=== PATIENT | female | born 1985 | race Hispanic/Latino ===

== ENCOUNTER 2016-03-24 17:02 | Emergency (ER) ==
[2016-03-24 17:48] VITALS: BP 118/68
[2016-03-24 18:02] LABS: URINE SOURCE CLEAN CATCH
[2016-03-24 18:16] LABS: BILIRUBIN URINE NEGATIVE (NEGATIVE); BLOOD URINE TRACE (NEGATIVE); CLARITY VERY CLOUDY (CLEAR); COLOR YELLOW; GLUCOSE URINE NEGATIVE (NEGATIVE); LEUKOCYTES URINE TRACE (NEGATIVE); NITRITE URINE NEGATIVE (NEGATIVE); PROTEIN URINE NEGATIVE (NEGATIVE); SP GRAVITY URINE 1.015; UROBILINOGEN URINE NORMAL
[2016-03-24 18:22] LABS: URINE CULTURE PL NEEDED? YES; URINE EPITHELIAL CELLS <10 /HPF (<10); URINE RBC <10 /HPF (<10); URINE WBC <10 /HPF (<10)
[2016-03-24] MEDS ORDERED: SORBITOL PO ONE (20:32)
--- NOTE | 2016-03-24 20:35 | PROVIDER DOCUMENTATION ---
HPI-Abdominal Pain/GI Problem - General Chief Complaint: Abdominal Pain Stated Complaint: 11 WKS PREG/ABD PAIN Time Seen by Provider: 03/24/16 19:45 Source: patient Allergies/Adverse Reactions: Patient Allergies Allergy/AdvReac Type Severity Reaction Status Date / Time No Known Allergies Allergy Verified 10/03/13 20:54 - History of Present Illness-ABD Nature of Presenting Problems: Pt is 30 F presents to the ED with stomach pain and vomiting that began last night. Pt states she is but denies bleeding. Abdominal Pain Onset Location: reports: generalized abdomen Pain Radiation: reports: no radiation Quality of Pain: reports: burning Severity in ED: reports: mild, moderate Onset/Duration: reports: last night Timing: reports: still present, improving Activities at Onset: reports: none Modifying Factors: improves with: nothing Associated Symptoms: reports: nausea, vomiting Review of Systems - Adult - REVIEW OF SYSTEMS - ADULT Constitutional: denies: chills, fever Eyes: reports: no symptoms reported Ears, Nose, Mouth & Throat: reports: no symptoms reported Cardiovascular: reports: no symptoms reported Respiratory: reports: no symptoms reported Gastrointestinal: reports: abdominal pain, nausea, vomiting. denies: constipation, diarrhea Genitourinary: denies: dysuria, discharge, frequency, flank pain, incontinence, urinary retention Musculoskeletal: reports: no symptoms reported Integumentary: reports: no symptoms reported Neurological: reports: no symptoms reported Psychiatric: reports: no symptoms reported Endocrine: reports: no symptoms reported Hematologic/Lymphatic: reports: no symptoms reported Allergic/Immunologic: reports: no symptoms reported All Other Systems: Reviewed and Negative Past History - Adult - PAST MEDICAL HISTORY-ADULT Review of Records: reports: Old Records Reviewed, Nursing Assessment Review, Medications Reviewed Physical Exam-General - PHYSICAL EXAM-ADULT Initial Vital Signs Reviewed: Yes - CONSTITUTIONAL General Appearance: appears well, alert, no apparent distress - EYES Eyes: PERRL/EOMI, pink conjunctivae - HEAD, EARS, NOSE, MOUTH & THROAT HENMT: moist mucous membranes, normal ENT inspection, TMs normal, pharynx normal - NECK Neck: non-tender, full range of motion, supple - RESPIRATORY Respiratory: lungs clear, normal breath sounds, no pleuratic chest pain, no respiratory distress, no accessory muscle use - CARDIOVASCULAR Cardiovascular: normal peripheral pulses, regular rate, rhythm - GASTROINTESTINAL (ABDOMEN) Abdominal Exam: normal bowel sounds, non tender, soft - MUSCULOSKELETAL Back Exam: normal inspection, no CVA tenderness, no vertebral tenderness Extremity: normal range of motion, non-tender, normal gait, normal inspection - SKIN Integumentary: normal color, normal turgor, warm/dry - NEUROLOGIC Neurologic: grossly normal, no motor/sensory deficits - PSYCHIATRIC Psych/Mental Status: normal mood/affect, normal thought content, normal thought process, oriented x 3 Progress - PLAN OF CARE/RESULTS Progress/Plan/Lab Results: Orders Category Date Time Status US OBS COMPLETE < 14 WKS [US] Stat Exams 03/24/16 19:31 Taken QUANT TEST Stat Lab 03/24/16 19:39 Completed RHOGAM WORKUP [BBK] Stat Lab 03/24/16 19:39 Completed UCG [ TEST-URINE] [PREG] Stat Lab 03/24/16 17:[address] W/POSS RFLX CULT [URINALYSIS] Stat Lab 03/24/16 17:53 Completed URINE CULTURE [RM] Routine Lab 03/24/16 18:22 Ordered Sorbitol Med 03/24/16 20:32 Discontinued 15 ml PO NOW ONE Vital Signs Temp Pulse Resp BP 03/24/16 17:40 97.7 F 86 18 118/68 No Known Allergies Allergy (Verified 10/03/13 20:54) Laboratory 03/24/16 03/24/16 03/24/16 19:39 19:39 17:53 Ser , Semi-Qnt 02232.0 Urine Source Urine Color Urine Clarity Urine pH Ur Specific [place] Urine Protein Urine Ketones Urine Blood Urine Nitrite Urine Bilirubin Urine Urobilinogen Urine Microscopic RBC Urine WBC Urine Microscopic WBC Ur Epithelial Cells Urine Bacteria Urine Glucose Urine Test NEGATIVE ABO/Rh O POSITIVE RhIG Candidate? NO 03/24/16 17:53 Ser , Semi-Qnt Urine Source CLEAN CATCH Urine Color YELLOW Urine Clarity VERY CLOUDY A Urine pH 9.0 Ur Specific [place] 1.015 Urine Protein NEGATIVE Urine Ketones NEGATIVE Urine Blood TRACE Urine Nitrite NEGATIVE Urine Bilirubin NEGATIVE Urine Urobilinogen NORMAL Urine Microscopic RBC <10 Urine WBC TRACE A Urine Microscopic WBC <10 Ur Epithelial Cells <10 Urine Bacteria 1+ Urine Glucose NEGATIVE Urine Test ABO/Rh RhIG Candidate? - ULTRASOUND (By Radiology) 1 US Study: Pelvic Impression: Normal US Results: live IUP Departure - Departure Time of Disposition Order: 20:34 DIAGNOSIS: Intrauterine Disposition: HOME 01 Certified Medical Emergency: Emergent Condition: Stable Additional Instructions: Follow up with [facility] ED Follow Up Instructions: You have been treated by a care provider in the Emergency Department. These instructions are being provided to you so you can have an understanding of how to care for yourself upon discharge. Upon discharge from the Emergency Department, you are responsible for making arrangements for follow-up care by a physician of your choice. Take all prescribed medications as directed. Return to the Emergency Department immediately for any new or worsening symptoms. You may call the Physician Referral phone number at [phone] to obtain a list of Physicians who are taking new patients. Referrals: None,PCP [Primary Care Provider] - Barbara Jonas MD [STAFF PHYSICIAN] - Forms: Return to School/Parent Work Instructions: Care Attestation - Scribe Verification/Attestation Scribe:: Garry Troncoso Acting as Scribe for:: Sage Brandon Scribe documention review:: This chart was documented by a scribe and accurately reflects the service the provider performed and the decisions made by the provider.
--- NOTE | 2016-03-24 22:21 | Diag Imaging Result Document ---
PROCEDURE NAME: US OBS COMPLETE < 14 WKS - 03/24/2016 STUDY: Transvaginal pelvic ultrasound. There is an intrauterine with an estimated gestational age of 12 weeks and 0 days plus or minus 7 days. heart rate is present at 171 beats per minute. No focal abnormality identified. The ovaries are normal. No free pelvic fluid. No adnexal mass. IMPRESSION: Intrauterine with an estimated gestational age of 12 weeks and 0 days corresponding with an estimated date of delivery of 10/06/2016. A preliminary report was given at 8:03 p.m.
== END 2016-03-24 20:51 | disposition home or self-care (01) ==
LOC: P.ED 17:02
DX: O26.891 Other specified pregnancy related conditions, first trimester (principal); R10.84 Generalized abdominal pain; R11.0 Nausea; O21.9 Vomiting of pregnancy, unspecified; Z3A.12 12 weeks gestation of pregnancy
CPT/HCPCS: 76801; 81001; 81025; 84702; 86900; 86901; 87088